=== PATIENT | female | born 2000 | race Caucasian/White ===

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

== ENCOUNTER 2018-02-03 10:33 | Emergency (ER) | payer SELFPAY ==
--- NOTE | 2018-02-03 11:38 | RAD ---
RIGHT HAND 3 VIEWS: HISTORY: Pain. COMPARISON: None. FINDINGS: No fracture. No cortical irregularity. No periosteal reaction. IMPRESSION: Unremarkable 3 views right hand. POS: [facility]
[2018-02-03] MEDS ORDERED: Acetaminophen 325 MG TAB ONE (11:52)
== END 2018-02-03 12:17 | disposition home or self-care (01) ==
LOC: ERS 10:33
DX: S60.031A Contusion of right middle finger without damage to nail, initial encounter (principal); W22.8XXA Striking against or struck by other objects, initial encounter

== ENCOUNTER 2018-04-23 13:02 | Emergency (ER) | payer MEDICAID, OTHER ==
[2018-04-23 13:52] LABS: #Eosinphils 0.1 thou/uL (0.0-0.7); #Lymphocytes 1.7 thou/uL (1.20-3.40); #Monocytes 0.4 thou/uL (0.11-0.59); #Neutrophils 6.1 thou/uL (1.40-6.50); %Basophils 0.5 % (0.0-1.0); %Eosinophils 1.3 % (0.0-10.0); %Lymphocytes 20.7 % (28.0-48.0); %Neutrophils 72.4 % (31.0-61.0); Mean Corpuscular HGB CONC 34.7 g/dL (32.0-36.0); Mean Corpuscular Hemoglobin 30.9 pg (25.0-35.0); Mean Corpuscular Volume 89.2 fL (78.0-98.0); Platelet Count 178 thou/uL (130-400); RBC Distribution Width 12.3 % (11.5-14.5); Red Blood Cell (RBC) Count 4.53 mill/uL (4.00-5.20); White Blood Cell (WBC) Count 8.4 thou/uL (4.8-10.8)
[2018-04-23 14:04] LABS: Bilirubin Negative (Negative); Blood, Urine Negative (Negative); Clarity CLEAR (Clear); Glucose, Urine (Dipstick) Negative (Negative); Leukocyte Trace (Negative); Nitrite Negative (Negative); Protein, Urine (Dipstick) Negative (Neg-Trace); Specific Gravity, Urine 1.009 (1.002-1.036); Urobilinogen 0.2 mg/dL (0.2-1.0); pH, Urine 7.5 (5.0-9.0)
[2018-04-23 14:07] LABS: Bacteria/HPF 2+ HPF (None Seen); Hyaline Casts/LPF 0-3 HYALINE CAST LPF (0-3 Hyaline); Pathc Cast-AUWi Flag 0.29 (0-2.49); RBC/HPF 0-3 HPF (0-3); WBC/HPF 0-3 HPF (0-3)
[2018-04-23 14:15] LABS: ALT (SGPT) 23 U/L (8-55); AST (SGOT) 28 U/L (5-30); Albumin 4.3 g/dL (3.5-5.0); Alkaline Phosphatase 57 U/L (40-150); Anion Gap 13 mmol/L (10-20); BUN (Urea Nitrogen) 5 mg/dL (8.4-21.0); Bilirubin, Total 0.2 mg/dL (0.2-1.2); Calc. Creatinine Clearance 0 mL/min (70-130); Calcium 10.1 mg/dL (7.8-10.44); Carbon Dioxide 21 mmol/L (22-29); Chloride 105 mmol/L (98-107); Estimated GFR-MDRD Greater than 90; Globulin 3.7 g/dL (2.4-3.5); Glucose 75 mg/dL (70-105); Lipase 43 U/L (8-78); Potassium 3.9 mmol/L (3.5-5.1); Sodium 135 mmol/L (136-145)
[2018-04-23] MEDS ORDERED: cefTRIAXone\\ROCEPHIN 2 GM VIAL ONE (15:29)
[2018-04-23] MEDS ORDERED: Acetaminophen 500 MG TAB ONE (15:38)
--- NOTE | 2018-04-23 15:55 | ULT ---
OBSTETRIC SONOGRAM: HISTORY: Pelvic pain. Second trimester gestation. FINDINGS: The cervix is closed and 2.6 cm. Single intrauterine gestation in breech presentation. Grade 0 plac enta is anterior. Amniotic fluid is within normal limits. Uterine contraction is intermittent noted along the anterior wall. Heart motion is demonstrated at 149 beats per minute. Measurements are as follows: Biparietal diameter: 16 weeks 0 days Head circumference: 16 weeks 3 days Abdominal circumference: 16 weeks 2 days Femur length: 16 weeks 0 days Estimated date of delivery, based on today's sonogram is 10/08/2018. IMPRESSION: Single viable intrauterine gestation with estimated gestational age, based on today's sonogram, 16 we eks 0 days. No significant abnormalities demonstrated. POS: [facility]
[2018-04-24 23:05] LABS: Chlamydia by PCR Not Detected (NotDetected); GC by PCR Not Detected (NotDetected)
== END 2018-04-23 15:52 | disposition home or self-care (01) ==
LOC: ERS 13:02
DX: O20.0 Threatened abortion (principal); O23.42 Unspecified infection of urinary tract in pregnancy, second trimester; Z3A.16 16 weeks gestation of pregnancy
CPT/HCPCS: 36415; 76815; 80053; 81003; 81015; 83690; 84702; 85025; 86900; 86901; 87086; 87480; 87491; 87510; 87591; 87660; 96365; J0696

== ENCOUNTER 2018-10-09 10:39 | Day surgery (SDC) | payer OTHER ==
[2018-10-09 11:14] VITALS: BP 111/76; TEMP 98.3; BMI 30.7
[2018-10-09] MEDS ORDERED: Ondansetron ODT 8 MG TAB SL SCH (11:28)
--- NOTE | 2018-10-09 13:10 | PRG ---
DATE OF SERVICE: 10/09/2018 OB ER ENCOUNTER PRIMARY OB: Ruth Kenney CNM CHIEF COMPLAINT: Abdominal pain. HISTORY OF PRESENT ILLNESS: The patient is a 18-year-old G2, P0 female with an intrauterine at 39 weeks, who is presenting today with complaints of abdominal pain. She reports that was occurring about every 10 minutes prior to presentation to Labor and Delivery. The patient reports since coming to Labor and Delivery, she is not feeling them anymore. She denies any leakage of fluid or vaginal bleeding. She denies fall, headache, chest pain, shortness of breath. She has been having experiencing nausea with vomiting today. Denies diarrhea or constipation. Denies any new rashes, hip problems, knee problems, muscle weakness. Denies urinary urgency. PAST MEDICAL HISTORY: Negative. PAST SURGICAL HISTORY: She has had her wisdom teeth removed. ALLERGIES: NO KNOWN DRUG ALLERGIES. MEDICATIONS: vitamins. SOCIAL HISTORY: Denies drug, alcohol, or tobacco use. OB LABS: Unavailable at time of dictation. REVIEW OF SYSTEMS: Per HPI. PHYSICAL EXAMINATION: VITAL SIGNS: Blood pressure 111/76, heart rate of 106, saturating 98% on room air, temperature 98.3. GENERAL: She appears to be in no acute distress. She is alert, oriented, cooperative, and pleasant to interact with. HEAD: Normocephalic and atraumatic. LUNGS: Clear to auscultation bilaterally. HEART: Regular rate and rhythm. ABDOMEN: Soft. EXTREMITIES: Nontender, nonedematous. : Cervix is fingertip thick and high. heart tracing performed shows a baseline difficult to assess 130s or 140s, it is not established clearly in one field or the other. Positive moderate long-term variability. No clear 15 x 15 accelerations at this time. No significant deceleration. Tocometer shows some irritability. ASSESSMENT AND PLAN: The patient is a 18-year-old G2, P0 female with an intrauterine in her 39th week, present for evaluation for labor. The patient has no evidence of labor today. However, the patient does not have a reactive NST of her fetus up to this point. She does not have any evidence of labor, however. The patient has not eaten since yesterday evening and has been nauseous with some vomiting. We have given her 8 mg of sublingual Zofran and will attempt to hydrate feeder and see if baby will perk up. Pending a reactive NST , the patient will be discharged to home. Otherwise, a BPP will be ordered for closer evaluation of the status and reassessment will be made then. Addendum: Fetus experienced two decel in late position. Otherwise fetus was reassuring. A contraction stress test was performed. During the test fetus was noted to be reactive without any decelerations. baseline 140s with moderate ltv, + [id number], no decel. Because pt continued to feel contractions at the conclusion of the testing pt asked if she could go walking and be reevaluated after 1-2 hrs. Recheck pt was 2/50/-2 station. ucx were not painful to the point she needed pain meds. PT was sent home in latent labor. Term precautions were given. She has an appt with Ms Light on thrs. Job ID: [id number] MTDD
[2018-10-09] MEDS ORDERED: Lactated Ringer's 1,000 ML IV SCH ×2 (14:00)
[2018-10-09] MEDS ORDERED: NS w/ Oxytocin 10 units 500 ML IV SCH (14:00)
== END 2018-10-09 18:10 | disposition home or self-care (01) ==
LOC: L&D/OP 10:39
PROVIDERS: ATTEND Advanced Practice Midwife
DX: O47.1 False labor at or after 37 completed weeks of gestation (principal); Z3A.39 39 weeks gestation of pregnancy; Z91.040 Latex allergy status
CPT/HCPCS: 59020; 96361; 96365; 99283

== ENCOUNTER 2018-10-10 22:12 | Inpatient (IN) | payer OTHER ==
[~2018-10-10 22:12] MED LIST: Bupivacaine/Epinephrine 0.25% 30 ML VIAL ONE
[2018-10-10] MEDS ORDERED: Promethazine HCl 25 MG/ML VIAL IM PRN (23:31)
[2018-10-10] MEDS ORDERED: HYDROcodone/Acetaminophen 5/325 mg Tablet PO PRN ×2 (23:31)
[2018-10-10] MEDS ORDERED: Lidocaine 1% (PF) 30 ML VIAL SC PRN (23:31)
[2018-10-10] MEDS ORDERED: NS / Oxytocin 40 units/1000ml 1,000 ML IV PRN (23:31)
[2018-10-10] MEDS ORDERED: Ibuprofen 800 MG TAB PO PRN (23:31)
[2018-10-10] MEDS ORDERED: Ondansetron PF 4 MG/2 ML Vial IVP PRN (23:31)
--- NOTE | 2018-10-10 23:34 | PDOC.LDHP ---
Labor and Delivery H&P HPI: Patient of Bonnie Kenney EGA: 39 weeks 6 days CC: here for CTX HPI: 18 yo SAB1 now at 39 weeks 6 days with regular CTX, was 2cm and 50% yesterday. No LOF, no VB. Good FM. Review of Systems: Complete ROS assessed and as per HPI Current gestational age (weeks): 39 (6 days) Grav: 2 Para: 0 OB History Details: SAB x 1 Current complications: none Abnormal US findings: No Current medications: pre-cliff vitamins Allergies/Adverse Reactions: Allergies Allergy/AdvReac Type Severity Reaction Status Date / Time POWDERED LATEX Allergy Mild Uncoded 10/10/18 22:55 Social history: none - Physical Exam Vital signs reviewed and normal: yes (135/76; 78; 98.1; 19) General: NAD Heart: RRR Lungs: CTAB Abdomen: gravid (EFW 6.5#) FHT: category 1 [place] contractions every: every 2-4 minutes - Vaginal Exam cm dilated: 2 Effacement: 90% Station: 0 - Assessment L&D Assessment: term patient in labor (Full Term, GBS negative; As she was here yesterday and now more effaced with painful contractions, I will admit for early labor. Although only 2cm, I feel she is laboring. Admit also for pain control.) - Plan Plan: admit to L&D, labor augmentation if indicated, informed consent obtained, anesthesia consult for pain management, other (Full Term, GBS negative; As she was here yesterday and now more effaced with painful contractions, I will admit for early labor. Although only 2cm, I feel she is laboring. Admit also for pain control.)
[2018-10-11 00:03] LABS: Hemoglobin 11.7 g/dL (12.0-16.0); Mean Corpuscular HGB CONC 33.4 g/dL (32.0-36.0); Mean Corpuscular Hemoglobin 28.1 pg (25.0-35.0); Mean Corpuscular Volume 84.1 fL (78.0-98.0); Mean Platelet Volume 11.1 fL (7.4-10.4); Platelet Count 145 thou/uL (130-400); RBC Distribution Width 14.9 % (11.5-14.5); Red Blood Cell (RBC) Count 4.18 mill/uL (4.00-5.20); White Blood Cell (WBC) Count 8.5 thou/uL (4.8-10.8)
[2018-10-11 00:40] LABS: Syphilis Antibody Nonreactive (Nonreactive); Syphilis Antibody Index 0.04 S/CO (<1.00 Non-Reactive)
[2018-10-11 00:48] LABS: HBSAg Index 0.15 S/CO (0-0.99); HIV (1/2) Antibody/Antigen Non-Reactive (NonReactive); HIV 1/2 INDEX 0.15 S/CO (<1.00); Hep B Surf Ag Non-Reactive S/CO (NonReactive)
[2018-10-11 01:20] VITALS: BMI 30.7
[2018-10-11] MEDS: Lactated Ringer's 1,000 ML IV SCH ×3 (01:30→07:08)
[2018-10-11] MEDS: Butorphanol Tartrate 1 MG/ML VIAL SLOW IVP PRN ×2 (01:38→02:52)
[2018-10-11] MEDS ORDERED: Lidocaine 1.5% w/Epi 1:200K 30 ML VIAL (Epid Use) ONE (03:34)
[2018-10-11] MEDS ORDERED: Fentanyl 4 mcg/Bup 0.1% Cadd 100 ML ONE (03:38)
[2018-10-11] MEDS ORDERED: ePHEDrine/0.9% NaCl/PF SYRINGE 50 mg/10 ml SLOW IVP PRN (04:38)
[2018-10-11] MEDS ORDERED: Promethazine HCl 25 MG/ML VIAL IM PRN (04:38)
[2018-10-11] MEDS ORDERED: Ondansetron PF 4 MG/2 ML Vial IVP PRN (04:38)
[2018-10-11] MEDS ORDERED: Lactated Ringer's 500 ML IV PRN (04:38)
[2018-10-11] MEDS ORDERED: diphenhydrAMINE 50 MG/ML VIAL IVP PRN (04:38)
[2018-10-11] MEDS ORDERED: Naloxone HCl 0.4 mg/ml Vial IVP PRN ×2 (04:38)
[2018-10-11] MEDS ORDERED: Acetaminophen 325 MG TAB PO PRN (04:38)
[2018-10-11] MEDS ORDERED: Eucerin (Mineral Oil/Petrolatum,White) 30 gm Jar TOP PRN (04:38)
[2018-10-11] MEDS ORDERED: Communication Order-Pharmacy FS SCH (04:45)
[2018-10-11] MEDS ORDERED: Fentanyl 4 mcg/Bupivacaine 0.1% Cassette 100 ML EPIDURAL SCH (04:45)
--- NOTE | 2018-10-11 09:52 | PDOC.OPDEL ---
OB Operative/Delivery Note Delivery Dr/Surgeon: Tyler Kenney CNM Pre-Delivery Diagnosis: active labor Procedure/Post Delivery Dx: spontaneous vaginal delivery Weeks gestation: 40 Anesthesia: epidural - Findings A Sex: female Weight: 7 lb 2 oz - 1 min: 8 - 5 min: 9 - Additional Findings/Plan Placenta delivered: spontaneous Repaired Obstetrical Laceration: left labial (repaired.) Estimated blood loss: 185QBL Compilations/Other Findings: [place] ca[place] delivery - Double nuchal. Post delivery plan: routine recovery
[2018-10-11] MEDS ORDERED: Milk Of Magnesia 30 ML UDCUP PO PRN (11:29)
[2018-10-11] MEDS ORDERED: Benzocaine/Menthol 20-0.5% 60 ML CAN TOP PRN (11:29)
[2018-10-11] MEDS ORDERED: NS / Oxytocin 40 units/1000ml 1,000 ML IV SCH (11:29)
[2018-10-11] MEDS ORDERED: Methylergonovine 0.2 MG/ML VIAL IM PRN (11:29)
[2018-10-11] MEDS ORDERED: Bisacodyl 10 MG SUPP PR PRN (11:29)
[2018-10-11] MEDS ORDERED: Misoprostol 200 MCG TAB VAG PRN (11:29)
[2018-10-11] MEDS ORDERED: HYDROcodone/Acetaminophen 5/325 mg Tablet PO PRN ×2 (11:29)
[2018-10-11] MEDS: Ibuprofen 800 MG TAB PO SCH (17:13)
[2018-10-11] MEDS: Ferrous Sulfate 325 MG TAB PO SCH (17:14)
[2018-10-11] MEDS: Docusate Calcium (SURFAK) 240 MG CAP PO SCH (21:10)
[2018-10-12] MEDS: Ibuprofen 800 MG TAB PO SCH ×3 (01:11→17:50)
[2018-10-12] MEDS: Ferrous Sulfate 325 MG TAB PO SCH ×2 (07:28→16:58)
[2018-10-12] MEDS: Prenatal Vitamin 1 TAB PO SCH (08:29)
[2018-10-12] MEDS: Docusate Calcium (SURFAK) 240 MG CAP PO SCH ×2 (08:29→21:44)
[2018-10-12] MEDS ORDERED: Measles/Mumps/Rubella 10 MCG/0.5 ML VIAL SC ONE (09:00)
[2018-10-12] MEDS ORDERED: Adacel (T-DAP) 0.5 ML SYRINGE IM ONE (09:00)
--- NOTE | 2018-10-12 13:20 | PDOC.PP ---
Post Progress Note Post Day #: 1 Subjective: Doing well. - but has a blister on her left nipple. PO intake tolerated: yes Flatus: yes Ambulation: yes Vital Signs (12 hours) Temp Pulse Resp BP Pulse Ox 10/12/18 08:18 98.2 F 84 20 115/69 96 10/12/18 05:00 97.9 F 80 16 105/71 Weight Weight 168 lb - Physical Examination General: NAD Cardiovascular: no m/r/g, RRR Respiratory: non-labored breathing Abdominal: + bowel sounds, lochia (minimal) Extremities: negative homans (B) Psychiatric: A&Ox3 Result Diagrams: 10/10/18 23:53 Additional Labs: Post Labs Blood Type O POSITIVE 10/10/18 23:53 Hep Bs Antigen Non-Reactive S/CO (NonReactive) 10/10/18 23:53 (1) (spontaneous vaginal delivery) Code(s): O80 - ENCOUNTER FOR FULL-TERM UNCOMPLICATED DELIVERY Status: Acute - Assessment/Plan PPD #1 NML exam. BF consult for nipple damage on left. Plan for discharge tomorrow.
[2018-10-13] MEDS: Ibuprofen 800 MG TAB PO SCH ×2 (02:04→09:55)
[2018-10-13] MEDS: Ferrous Sulfate 325 MG TAB PO SCH (07:20)
[2018-10-13 08:57] VITALS: BP 118/68; TEMP 97.9
[2018-10-13] MEDS: Prenatal Vitamin 1 TAB PO SCH (09:55)
[2018-10-13] MEDS: Docusate Calcium (SURFAK) 240 MG CAP PO SCH (09:55)
== END 2018-10-13 13:00 | disposition home or self-care (01) | DRG 807 ==
LOC: L&D/OP 22:12 → L&D 23:37 → 3SW 10-11 12:30
PROVIDERS: ADMIT Obstetrics & Gynecology; ATTEND Obstetrics & Gynecology
PROC: 10E0XZZ Delivery of Products of Conception, External Approach (ICD-10-PCS; principal; 2018-10-11)
PROC: 0UQMXZZ Repair Vulva, External Approach (ICD-10-PCS; 2018-10-11)
DX: O69.81X0 Labor and delivery complicated by cord around neck, without compression, not applicable or unspecified (principal); Z37.0 Single live birth; O70.0 First degree perineal laceration during delivery; Z3A.39 39 weeks gestation of pregnancy
CPT/HCPCS: 36415; 51702; 85027; 86780; 86850; 86900; 86901; 87340; 87389; 99285; J0595; J2001

== ENCOUNTER 2020-04-12 10:54 | Emergency (ER) | payer OTHER ==
[2020-04-13 15:22] LABS: SARS-CoV-2 MS2 Positive; SARS-CoV-2 N Gene Negative; SARS-CoV-2 S Gene Negative; SARS-CoV-2 orf1ab Negative
== END 2020-04-12 11:53 | disposition home or self-care (01) ==
LOC: ERS 10:54
DX: Z20.828 Contact with and (suspected) exposure to other viral communicable diseases (principal)
CPT/HCPCS: 87635; 99283; U0003